=== PATIENT | male | born 1940 | race Caucasian/White ===

== ENCOUNTER → 2017-03-06 | Outpatient (CLI) | payer MEDICARE, OTHER ==
[~2017-03-06] MED LIST: AMIO200T42 PO; APIX5TAB PO; ASPI-430 PO; FURO40TA6 PO; FURO80TA3 PO; LEVO100T5 PO; LEVO500T8 PO; METO-95 PO; MULT-61 PO; POTA20TA6 PO; REGADENOSON 0.4 MG/5 ML SYRINGE ONE; SIMV20TA3 PO; TELM80TA5 PO
== END | disposition home or self-care (01) ==
LOC: CFH 07:41
PROVIDERS: ATTEND Nurse Practitioner Family
DX: I08.3 Combined rheumatic disorders of mitral, aortic and tricuspid valves (principal)
CPT/HCPCS: 78452; 93017; 93306; A9502; J2785

== ENCOUNTER 2019-10-28 09:30 | Outpatient (CLI) | payer MEDICARE, OTHER ==
[~2019-10-28 09:30] MED LIST changes: -REGADENOSON 0.4 MG/5 ML SYRINGE ONE; +SIMV20TA19 PO; -SIMV20TA3 PO; -TELM80TA5 PO; +TELM80TA8 PO
== END 2019-10-28 23:59 | disposition home or self-care (01) ==
LOC: CVU 09:30
PROVIDERS: ATTEND Family Medicine
DX: I08.8 Other rheumatic multiple valve diseases (principal); R01.1 Cardiac murmur, unspecified; I25.5 Ischemic cardiomyopathy
CPT/HCPCS: 93306; 93356